=== PATIENT | female | born 1960 | race Caucasian/White ===

== ENCOUNTER 2018-04-25 20:21 | Emergency (ER) | payer OTHER ==
[2018-04-25] MEDS: IBUPROFEN 600 MG TAB PO (22:27)
[2018-04-25] MEDS: DIPHTH/TET/ACEL PERTUSS (ADULT) 0.5 ML VIAL IM* (22:28)
== END 2018-04-25 23:26 | disposition home or self-care (01) ==
LOC: FTE 23:26
DX: S60.222A Contusion of left hand, initial encounter (principal); W26.0XXA Contact with knife, initial encounter; Y92.9 Unspecified place or not applicable; Z23 Encounter for immunization
CPT/HCPCS: 90471; 90715; 99283-25

== ENCOUNTER 2018-11-29 13:34 | Emergency (ER) | payer OTHER | END 2018-11-29 17:12 | disposition home or self-care (01) | LOC: FTE 13:34 | DX: R05 Cough (principal) | CPT/HCPCS: 99283; Z7502 ==